=== PATIENT | female | born 1965 | race African-American/Black ===

== ENCOUNTER 2016-06-06 04:41 | Emergency (ER) | payer OTHER ==
[2016-06-06] MEDS ORDERED: DIAZEPAM 5 MG TAB ONE (05:33)
[2016-06-06] MEDS ORDERED: KETOROLAC 60 MG/2 ML VIAL IM ONE (05:33)
[2016-06-06] MEDS ORDERED: TRAMADOL 50 MG TAB ONE (06:21)
== END 2016-06-06 06:51 | disposition home or self-care (01) ==
LOC: ER 04:41
DX: S43.421A Sprain of right rotator cuff capsule, initial encounter (principal); Y93.E9 Activity, other interior property and clothing maintenance; Y92.008 Other place in unspecified non-institutional (private) residence as the place of occurrence of the external cause; M54.12 Radiculopathy, cervical region
CPT/HCPCS: 72050; 96372